=== PATIENT | male | born 1960 ===

== ENCOUNTER 2017-10-31 03:48 | Inpatient (IN) ==
[2017-10-31] MEDS ORDERED: Naloxone 0.4 MG/ML INJ IVP PRN (06:03)
[2017-10-31] MEDS ORDERED: Acetaminophen 325 MG TABLET PO PRN (06:03)
[2017-10-31] MEDS ORDERED: Lacri-Lube 3.5 GM TUBE BOTH EYES PRN (06:08)
[2017-10-31] MEDS ORDERED: *HR* FentaNYL (PF) 100 MCG/2 ML VIAL IVP PRN (06:10)
[2017-10-31] MEDS ORDERED: *HR* LORazepam 2 MG/ML VIAL IVP PRN (06:10)
[2017-10-31] MEDS ORDERED: 0.9 % Sodium Chloride 1,000 ML IVC SCH (06:15)
--- NOTE | 2017-10-31 06:36 | Internal Med History&Physical ---
Date of Encounter: 10/31/17 Time of Encounter: 05:30 Internal Medicine - H&P: HPI Chief complaint: respiratory failure Admitted From: Hospital to Hospital Transfer ([facility]) History of present illness: Mr. Mayberry is a 57 year old male who was transferred from the [facility] for concerns of respiratory failure, aspiration pneumonia, and likely drug withdrawal or overdose. Dr. English received a phone call from the [facility] requesting transfer a few hours ago. Dr. English requested patient be intubated for airway protection en route and for medical stabilization. Unfortunately, the [facility] informed Dr. English that they do not feel comfortable intubating because of lack of radiology support to confirm ET tube placement. He had been on BiPAP for several hours prior to transfer request and, despite BiPAP, he had a sustained respiratory acidosis and had oxygen desaturation. He was transferred on BiPAP and an unprotected airway. Upon arrival to the ICU, I was at the bedside once he arrived by squad. He was unresponsive but was twitching and agitated. His oxygen levels were dropping and he was unable to protect his airway. I perform a jaw thrust and tried to help clear his airway. Nonetheless, he continued to have persistent respiratory distress and had oxygen desaturation. We therefore proceeded with immediate intubation at bedside. He was premedicated with Versed and etomidate. Airway was successfully established on the first attempt by respiratory therapy under my direct supervision. An OG tube was placed. Chest x-ray and KUB were then ordered to confirm placement. We confirmed placement by auscultation and CO2 detector as well. No history could be obtained from patient whatsoever. I then reviewed the very limited transfer records from [facility] available to me. Of note, patient's last blood gas at 3:30 this morning revealed a pH of 7.18, PCO2 82, PO2 84, bicarbonate 30.9 O2 sats 92% on BiPAP at 100% FiO2. There was also a telemedicine ICU consult at 3:12 in the morning recommending intubation and securing an airway at that point. However, that was not performed. Patient was apparently in a drug rehabilitation facility at the [facility] and he was allowed to leave the facility on day-time passes. It was reported to me that patient likely overdosed on some medication, presumably methamphetamine, but that is not yet confirmed. There were also thoughts that the patient had an aspiration pneumonia. However, I cannot find any documentation of that at this time. Past Med Surg Social Fam HX - Past Medical History Source: unable to obtain - Past Surgical History Surgical History: other (unknown) - Social History Drug use: methamphetamine Current living situation: Other (drug rehab at [facility]) - Family History Mother History Unknown: Yes Father History Unknown: Yes Internal Medicine - H&P: Meds 3 Allergy/AdvReac Type Severity Reaction Status Date / Time No Known Drug Allergies Allergy None Unverified 10/31/17 05:58 ROS unobtainable: due to endotracheal tube, due to mental status - Constitutional Vitals: Temp Pulse Resp BP Pulse Ox 100.9 F H 102 22 156/122 95 10/31/17 05:35 10/31/17 05:35 10/31/17 06:00 10/31/17 06:00 10/31/17 06:00 General appearance: Present: disheveled. Absent: A&O X 0, severe distress, answers questions appropriately Exam: patient unresponsive; pupils dilated; actively twitching; occluding airway with tongue base -- unresponsive to jaw thrust - Head Head exam: Present: atraumatic - Eye Eye exam: Absent: scleral icterus Additional comments: pupils dilated -- 6-7 mm; scleral injection bilaterally - ENT ENT exam: Present: mucous membranes dry, normal exam, normal external ear exam - Neck Neck exam general surgery: Present: full ROM, supple, trachea midline. Absent: lymphadenopathy, nuchal rigidity, thyromegaly - Respiratory Respiratory exam: Present: accessory muscle use, decreased breath sounds, prolonged expiratory phase, respiratory distress (severe), rhonchi, stridor, wheezes, tachypnea. Absent: rales - Cardiovascular Cardiovascular exam: Present: distant heart sounds, RRR, +S1, +S2, tachycardia. Absent: diastolic murmur, JVD, systolic murmur - GI/Abdominal GI/Abdominal exam: Present: distended, hypoactive bowel sounds, no peritoneal signs. Absent: hepatomegaly, splenomegaly - Extremities Exam Extremities exam: Present: warm, radial pulses palpable and symmetrical. Absent : joint swelling, pedal edema - Back Exam Back exam: Absent: CVA tenderness (L), CVA tenderness (R) - Neurological Exam Neurological exam: Absent: alert, oriented X3 Additional comments: twitching as above; unresponsive - Psychiatric Psychiatric exam: Present: agitated Additional comments: unresponsive to stimuli; agitated and twitching - Skin Skin exam: Present: dry, erythema (cellulitis type rash on LLE), warm Internal Med - H&P Results - EKG Data -: EKG Interpreted by Myself - EKG Data Prior EKG available for review: no EKG comments: 10/31/17 06:42 NSR; IVCD - Diagnostic Studies Chest x-ray Status: image reviewed by me (ETT in place; 5 lobe infiltrates (edema vs pneumonia)) - Assessment and plan (1) Acute respiratory failure with hypoxia and hypercapnia Current Visit: Yes Status: Acute Assessment and plan: 1. Patient successfully intubate upon arrival; unfortunately and airway was not secured prior to trasnfer. 2. Mechanical ventilation and support. 3. Consult Pulmonology for ICU management. 4. ECHO ordered to evaluate LV function. 5. Cycle troponins and EKG's. 60 minutes critical care time spent with patient thus far. (2) Pneumonia Current Visit: Yes Status: Acute Assessment and plan: 1. I suspect aspiration pneumonia with possible early ARDS development given 5 lobe disease. 2. Possible etiology could be cardiogenic. 3. ECHO as above. 4. Blood and sputum cultures ordered. 5. IV Vancomycin, Zosyn, and Levaquin. 6. Pulmonology consulted for ICU management. Qualifiers: Pneumonia type: due to unspecified organism Laterality: bilateral Lung location: unspecified part of lung Qualified Code(s): J18.9 - Pneumonia, unspecified organism (3) Drug abuse Current Visit: Yes Status: Acute Assessment and plan: 1. Urine drug screen ordered. 2. Patient now sedated on Propofol. 3. I will ask dayteam to contact [facility] to confirm drugs of abuse and use history. (4) DVT prophylaxis Current Visit: Yes Status: Acute Assessment and plan: 1. Heparin SQ.
[2017-10-31 07:05] LABS: Basophils % 0.2 %; Eosinophils % 0.2 %; Immature Granulocytes % 0.8 % (0-4); Lymphocytes # 0.8 K/mcL (0.6-4.6); Lymphocytes % 5.7 %; Mean Corpuscular HGB Conc 30.3 g/dL (31.6-35.5); Mean Corpuscular Hemoglobin 25.1 pg (28.0-33.3); Mean Corpuscular Volume 82.7 fL (83.0-100.0); Mean Platelet Volume 8.1 fL (9.4-12.4); Monocytes % 7.6 %; Neutrophils # 11.3 K/mcL (1.6-8.9); Nucleated Red Blood Cells 0.2 /100 WBC (0); Platelet Count 516 K/mcL (140-400); Red Blood Count 3.99 M/mcL (4.19-5.50); Red Cell Distribution Width 16.6 % (11.5-14.5); Segmented Neutrophils % 85.5 %
--- NOTE | 2017-10-31 07:17 | Pulmonology Consult Note ---
<ArmandoneEstermarian M - Last Filed: 10/31/17 09:55> Date of Encounter: 10/31/17 Medications and Allergies 3 Allergy/AdvReac Type Severity Reaction Status Date / Time No Known Drug Allergies Allergy None Unverified 10/31/17 05:58 All Systems: The remainder of the systems were reviewed and are negative Physical Examination Vital Signs: Vital Signs, Last 4 Hours Temp Pulse Resp BP Pulse Ox 10/31/17 09:07 13 100/67 97 10/31/17 09:00 79 13 101/73 98 10/31/17 08:30 99.1 F 82 13 105/70 96 10/31/17 08:00 84 10/31/17 07:30 84 18 96/73 96 10/31/17 07:12 15 101/75 98 10/31/17 07:00 87 18 101/75 98 10/31/17 06:42 90 10/31/17 06:00 96 18 103/69 98 Ventilator Settings Ventilator Settings: Ventilator Settings, Last 8 Hours Ventilator Mode VC+ Ventilator Mode VC+ Ventilator Mode VC+ Ventilator Mode VC+ Ventilator Mode VC+ Ventilator Mode VC+ Ventilator Mode VC+ Ventilator Mode VC+ Ventilator Tidal Volume 550 Setting Ventilator Tidal Volume 550 Setting Ventilator Tidal Volume 550 Setting Ventilator Tidal Volume 550 Setting Ventilator Tidal Volume 550 Setting Ventilator Tidal Volume 550 Setting Ventilator Tidal Volume 550 Setting Ventilator Tidal Volume 550 Setting Ventilator Respiratory Rate 12 Setting Ventilator Respiratory Rate 12 Setting Ventilator Respiratory Rate 12 Setting Ventilator Respiratory Rate 12 Setting Ventilator Respiratory Rate 12 Setting Ventilator Respiratory Rate 12 Setting Ventilator Respiratory Rate 12 Setting Ventilator Respiratory Rate 12 Setting Actual Respiratory Rate 15 Actual Respiratory Rate 13 Actual Respiratory Rate 13 Actual Respiratory Rate 18 Actual Respiratory Rate 16 Actual Respiratory Rate 18 Actual Respiratory Rate 18 Actual Respiratory Rate 22 Positive End Expiratory 5 Pressure Positive End Expiratory 5 Pressure Positive End Expiratory 5 Pressure Positive End Expiratory 5 Pressure Positive End Expiratory 5 Pressure Positive End Expiratory 5 Pressure Positive End Expiratory 5 Pressure Positive End Expiratory 5 Pressure Peak Inspiratory Airway 21 Pressure Peak Inspiratory Airway 25 Pressure Peak Inspiratory Airway 26 Pressure Peak Inspiratory Airway 24 Pressure Peak Inspiratory Airway 24 Pressure Peak Inspiratory Airway 25 Pressure Peak Inspiratory Airway 25 Pressure Peak Inspiratory Airway 24 Pressure Results - Laboratory Findings CBC and BMP: 10/31/17 06:36 10/31/17 06:36 ABG ABG pH 7.35 pH Units (7.32-7.45) 10/31/17 07:39 ABG pCO2 56 mmHg (35-45) H 10/31/17 07:39 ABG pO2 131 mmHg (85-104) H 10/31/17 07:39 ABG O2 Saturation 99 % (95-98) H 10/31/17 07:39 PT/INR, D-dimer PT 13.7 Seconds (9.4-12.1) H 10/31/17 06:36 Abnormal lab findings: Abnormal lab results WBC 13.3 K/mcL (4.3-11.1) H 10/31/17 06:36 RBC 3.99 M/mcL (4.19-5.50) L 10/31/17 06:36 Hgb 10.0 g/dL (12.9-16.9) L 10/31/17 06:36 Hct 33.0 % (37.5-50.1) L 10/31/17 06:36 MCV 82.7 fL (83.0-100.0) L 10/31/17 06:36 MCH 25.1 pg (28.0-33.3) L 10/31/17 06:36 MCHC 30.3 g/dL (31.6-35.5) L 10/31/17 06:36 RDW 16.6 % (11.5-14.5) H 10/31/17 06:36 Plt Count 516 K/mcL (140-400) H 10/31/17 06:36 MPV 8.1 fL (9.4-12.4) L 10/31/17 06:36 Neutrophils # 11.3 K/mcL (1.6-8.9) H 10/31/17 06:36 Nucleated RBCs/100 WBC 0.2 /100 WBC (0) H 10/31/17 06:36 PT 13.7 Seconds (9.4-12.1) H 10/31/17 06:36 ABG pCO2 56 mmHg (35-45) H 10/31/17 07:39 ABG pO2 131 mmHg (85-104) H 10/31/17 07:39 ABG HCO3 31 mEq/L (21-27) H 10/31/17 07:39 ABG Total CO2 33 mEq/L (20-26) H 10/31/17 07:39 ABG O2 Saturation 99 % (95-98) H 10/31/17 07:39 ABG Base Excess 4 mEq/L (-2 to 3) H 10/31/17 07:39 BUN 24 mg/dL (6-20) H 10/31/17 06:36 Glucose 154 mg/dL (70-105) H 10/31/17 06:36 POC Glucose 152 mg/dL (70-99) H 10/31/17 06:24 Troponin I 0.06 ng/mL (< 0.04) H* 10/31/17 06:36 Albumin 3.3 g/dL (3.5-5.7) L 10/31/17 06:36 Globulin 4.5 g/dL (2.4-3.5) H 10/31/17 06:36 Albumin/Globulin Ratio 0.7 (1.1-2.2) L 10/31/17 06:36 U Benzodiazepines Scrn Positive ng/mL (Dnangq=051) H 10/31/17 06:08 - Clinical Findings Intake & Output: Intake & Output 10/30/17 10/31/17 10/31/17 23:59 07:59 15:59 Intake Total 0 / 0 250 / 250 Output Total 250 / 250 Balance 0 / 0 0 / 0 Weight 104 kg Consult Discharge Plan - Plan [facility]: [facility]Primary Care Provider[facility] - - Attending Attestation I examined this patient and my medical decision-making was reviewed with the Resident Physician. I agree with the documented findings, disposition and treatment plan as described except to the extent set forth below. Patient seen and examined. Labs, radiology, chart personally reviewed. 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 There is only minimal intrinsic PEEP and lowered changed vent setting if he is not able to do SBT. There is a possibility of aspiration pneumonia and empiric antibiotics is reasonable. We will change vent setting based on his clinical response and he does not meet ARDS criteria. I suspect patient has underlying lung disease. Cardiovascular: stable GI: Nutrition per dietary and GI prophylaxis per routine Heme: DVT prophylaxis per routine ID: Continue antibiotics and plan to de-escalation Renal; urine out put and renal funtion reviewed Endorcine: blood glucose is monitored Lines: all lines checked and no evidence of infections Skin: skin care to prevent pressure ulcers per nursing routine care I spent 35 min of Critical Care time with this patient. It involved decision making of high complexity to assess, manipulate, and support vital organ system failure and/or to prevent further life threatening deterioration of the patient' s condition. The time involved in the performance of separately reportable procedures was not counted toward critical care time. <Devante Guzman - Last Filed: 10/31/17 10:13> Date of Encounter: 10/31/17 Time of Encounter: 09:31 Assessment and Plan (1) Acute respiratory failure with hypoxia and hypercapnia Current Visit: Yes Status: Acute Patient presented with acute respiratory failure necessitating emergent intubation on 10/31/17. Likely multifactorial with concern for drug ingestion or withdrawal as well as underlying COPD with hypercapnic respiratory acidosis and pneumonia. Continue mechanical ventilation. Albuterol and Symbicort as ordered. Continue broad-spectrum antibiotic coverage for pneumonia. Consider CPAP trial in afternoon. (2) Pneumonia Current Visit: Yes Status: Acute Chest x-ray with [place] edema versus pneumonia. Leukocytosis of 13. Afebrile. There was concern for aspiration as per documentation. Blood cultures and sputum cultures pending. Continue broad-spectrum antibiotics. Qualifiers: Pneumonia type: due to unspecified organism Laterality: bilateral Lung location: unspecified part of lung Qualified Code(s): J18.9 - Pneumonia, unspecified organism (3) Drug abuse Current Visit: Yes Status: Acute As per records history of methamphetamine abuse. Was sent from the [facility] where he was admitted for drug rehabilitation. Unsure of evening circumstances with concern for potential overdose or withdrawal. Urine drug screen positive for benzos however he received sedatives prior to transfer. Continue to monitor for drug withdrawal. (4) COPD (chronic obstructive pulmonary disease) Current Visit: Yes Status: Chronic Continue albuterol and Symbicort Qualifiers: COPD type: unspecified COPD Qualified Code(s): J44.9 - Chronic obstructive pulmonary disease, unspecified (5) DVT prophylaxis Current Visit: Yes Status: Acute Heparin 5000 units every 12 hours History of Present Illness Consult date: 10/31/17 Requesting physician: Tavon Cooper Reason for consult: other (Respiratory failure) Chief complaint: Respiratory failure, possible drug withdrawal History of present illness: Jorge Alberto is a 57-year-old male who was transferred from the [facility] this morning due to concerns for possible drug withdrawal/overdose, respiratory failure. History is obtained screws away from prior documentation as the patient is intubated and sedated. The patient was noted to be at the [facility] for drug rehabilitation for a prior history of amphetamine abuse. It appears that he was able to leave during the day for day passes and came back this evening. This morning our hospitalist spoke with the [facility] when they requested to transfer the patient. He was advised and requested that the patient be intubated prior to transfer. It appears the OR felt uncomfortable intubating the patient as they had no radiologist in house to confirm ET tube placement so sent the patient on BiPAP. He was emergently intubated upon arrival to the intensive care unit here due to respiratory failure and altered mental status with inability to guard his airway. Imaging and labs were ordered and broad-spectrum antibiotics initiated. Past Med Surg Social Fam HX - Past Medical History Source: old records reviewed Medical history: COPD, other (Drug abuse) - Past Surgical History Surgical History: other (unknown) - Social History Drug use: methamphetamine - Family History Mother History Unknown: Yes Father History Unknown: Yes ROS unobtainable: due to endotracheal tube All Systems: The remainder of the systems were reviewed and are negative Physical Examination Vital Signs: Vital Signs, Last 4 Hours Temp Pulse Resp BP Pulse Ox 10/31/17 07:00 87 18 101/75 98 10/31/17 06:42 90 10/31/17 06:00 96 18 103/69 98 10/31/17 05:35 100.9 F H 102 22 156/122 91 General appearance: other (Intubated and sedated) Eyes: nonicteric Effort: other (Intubated and sedated) Auscultation: bilateral: rhonchi Cardiovascular: regular rate and rhythm Gastrointestinal: soft, non-distended Integumentary: normal Extremities: no cyanosis, no edema Musculoskeletal: no deformities other (Sedated) Ventilator Settings Ventilator Settings: Ventilator Settings, Last 8 Hours Ventilator Mode VC+ Ventilator Mode VC+ Ventilator Mode VC+ Ventilator Tidal Volume 550 Setting Ventilator Tidal Volume 550 Setting Ventilator Tidal Volume 550 Setting Ventilator Respiratory Rate 12 Setting Ventilator Respiratory Rate 12 Setting Ventilator Respiratory Rate 12 Setting Actual Respiratory Rate 18 Actual Respiratory Rate 18 Actual Respiratory Rate 22 Positive End Expiratory 5 Pressure Positive End Expiratory 5 Pressure Positive End Expiratory 5 Pressure Peak Inspiratory Airway 25 Pressure Peak Inspiratory Airway 25 Pressure Peak Inspiratory Airway 24 Pressure Results - Laboratory Findings CBC and BMP: 10/31/17 06:36 10/31/17 06:36 Abnormal lab findings: Abnormal lab results WBC 13.3 K/mcL (4.3-11.1) H 10/31/17 06:36 RBC 3.99 M/mcL (4.19-5.50) L 10/31/17 06:36 Hgb 10.0 g/dL (12.9-16.9) L 10/31/17 06:36 Hct 33.0 % (37.5-50.1) L 10/31/17 06:36 MCV 82.7 fL (83.0-100.0) L 10/31/17 06:36 MCH 25.1 pg (28.0-33.3) L 10/31/17 06:36 MCHC 30.3 g/dL (31.6-35.5) L 10/31/17 06:36 RDW 16.6 % (11.5-14.5) H 10/31/17 06:36 Plt Count 516 K/mcL (140-400) H 10/31/17 06:36 MPV 8.1 fL (9.4-12.4) L 10/31/17 06:36 Neutrophils # 11.3 K/mcL (1.6-8.9) H 10/31/17 06:36 Nucleated RBCs/100 WBC 0.2 /100 WBC (0) H 10/31/17 06:36 POC Glucose 152 mg/dL (70-99) H 10/31/17 06:24 - Clinical Findings Intake & Output: Intake & Output 10/30/17 10/30/17 10/31/17 15:59 23:59 07:59 Intake Total 0 / 0 Balance 0 / 0 Weight 104 kg
[2017-10-31 07:20] LABS: Amphetamine Screen,Urine Negative ng/mL (Cutoff=1000); Barbiturate Screen,Urine Negative ng/mL (Cutoff=200); Benzodiazepines Screen,Urine Positive ng/mL (Cutoff=200); Cannabinoid Screen,Urine Negative ng/mL (Cutoff = 50); Cocaine Screen,Urine Negative ng/mL (Cutoff= 300); Opiate Screen,Urine Negative ng/mL (Cutoff=300); Phencyclidine Screen,Urine Negative ng/mL (Cutoff=25)
[2017-10-31 07:21] LABS: Alanine Aminotransferase 18 Units/L (7-52); Albumin 3.3 g/dL (3.5-5.7); Albumin/Globulin Ratio 0.7 (1.1-2.2); Alkaline Phosphatase 48 Units/L (34-104); Aspartate Amino Transferase 24 Units/L (13-39); BUN/Creatinine Ratio 26 (6-26); Bilirubin,Direct 0.1 mg/dL (0.0-0.2); Bilirubin,Indirect 0.3 mg/dL (0.0-1.2); Bilirubin,Total 0.4 mg/dL (0.3-1.0); Blood Urea Nitrogen 24 mg/dL (6-20); Calcium 8.7 mg/dL (8.6-10.3); Carbon Dioxide 28 mEq/L (23-29); Chloride 102 mEq/L (98-107); Globulin 4.5 g/dL (2.4-3.5); Glucose 154 mg/dL (70-105); Magnesium 2.4 mg/dL (1.6-2.6); Osmolality,Calculated 291 (280-300); Potassium 4.6 mEq/L (3.5-5.1); Sodium 137 mEq/L (136-145); Total Protein 7.8 g/dL (6.4-8.9); eGFR For African Americans > 60 (> 60); eGFR For Non-African Americans > 60 (> 60)
[2017-10-31 07:56] LABS: INR 1.3; Prothrombin Time 13.7 Seconds (9.4-12.1)
[2017-10-31 08:03] LABS: ABG Base Excess 4 mEq/L (-2 to 3); ABG HCO3 31 mEq/L (21-27); ABG Oxygen Saturation 99 % (95-98); ABG PCO2 56 mmHg (35-45); ABG PH 7.35 pH Units (7.32-7.45); ABG PO2 131 mmHg (85-104); ABG TCO2 33 mEq/L (20-26); Blood Gas Modality PRVC; Blood Gas PEEP 5 cm H2O; Blood Gas Respiration Rate 12; Blood Gas VT 550 cc
[2017-10-31] MEDS: Pantoprazole 40 MG VIAL IVP SCH (08:31)
[2017-10-31] MEDS: *HR* Heparin 5,000 UNIT/ML VIAL SQ SCH ×3 (08:31→23:43)
[2017-10-31] MEDS: Chlorhexidine Rinse 15 ML MOUTHWASH MM SCH ×2 (08:32→19:51)
[2017-10-31] MEDS: Levofloxacin 750 MG/150 ML 750 MG/150 ML BAG IVPB SCH (08:40)
[2017-10-31] MEDS: Lacri-Lube 3.5 GM TUBE BOTH EYES SCH ×5 (08:50→23:43)
[2017-10-31] MEDS ORDERED: MVI, adult with vitamin K 10 ML in 0.9 % Sodium Chloride 1,000 ML IVC ONE (09:02)
[2017-10-31] MEDS: Budesonide/Formoterol 160/4.5 MDI IH SCH ×2 (09:07→19:50)
[2017-10-31] MEDS ORDERED: *HR* Midazolam HCl 5 MG/5 ML VIAL IVP ONE (09:42)
[2017-10-31] MEDS ORDERED: *HR* LORazepam 2 MG/ML VIAL IVP ONE (09:42)
[2017-10-31] MEDS ORDERED: *HR* Etomidate 20 MG/10 ML AMPUL IVP ONE (09:42)
[2017-10-31] MEDS ORDERED: *HR* Midazolam HCl 2 MG/2 ML VIAL IV ONE (09:42)
[2017-10-31] MEDS: Piperacillin/Tazobactam 3.375 GM in 0.9 % Sodium Chloride Mini Bag 100 ML IVPB SCH ×3 (09:57→23:43)
[2017-10-31] MEDS: Dexmedetomidine HCl 400 MCG/100 ML MLS IVC SCH ×2 (10:37→17:59)
[2017-11-01] MEDS: Dexmedetomidine HCl 400 MCG/100 ML MLS IVC SCH ×2 (00:25→07:09)
[2017-11-01] MEDS: Lacri-Lube 3.5 GM TUBE BOTH EYES SCH ×5 (03:11→19:55)
[2017-11-01 03:52] LABS: Basophils # 0.1 K/mcL (0.0-0.2); Basophils % 0.4 %; Eosinophils # 0.1 K/mcL (0.0-0.6); Eosinophils % 0.9 %; Hemoglobin 9.9 g/dL (12.9-16.9); Immature Granulocytes % 0.3 % (0-4); Lymphocytes # 0.8 K/mcL (0.6-4.6); Lymphocytes % 6.8 %; Mean Corpuscular Hemoglobin 24.6 pg (28.0-33.3); Mean Corpuscular Volume 81.9 fL (83.0-100.0); Mean Platelet Volume 8.5 fL (9.4-12.4); Monocytes # 1.1 K/mcL (0.0-1.3); Monocytes % 9.8 %; Neutrophils # 9.5 K/mcL (1.6-8.9); Platelet Count 446 K/mcL (140-400); Red Blood Count 4.03 M/mcL (4.19-5.50); Red Cell Distribution Width 16.9 % (11.5-14.5); Segmented Neutrophils % 81.8 %
[2017-11-01 04:11] LABS: BUN/Creatinine Ratio 28 (6-26); Blood Urea Nitrogen 32 mg/dL (6-20); Calcium 8.7 mg/dL (8.6-10.3); Carbon Dioxide 27 mEq/L (23-29); Chloride 102 mEq/L (98-107); Glucose 138 mg/dL (70-105); Osmolality,Calculated 297 (280-300); Potassium 4.4 mEq/L (3.5-5.1); Sodium 139 mEq/L (136-145); eGFR For African Americans > 60 (> 60); eGFR For Non-African Americans > 60 (> 60)
[2017-11-01 05:06] LABS: ABG Base Excess 4 mEq/L (-2 to 3); ABG HCO3 29 mEq/L (21-27); ABG Oxygen Saturation 96 % (95-98); ABG PCO2 47 mmHg (35-45); ABG PO2 83 mmHg (85-104); ABG TCO2 31 mEq/L (20-26); Blood Gas Modality VC; Blood Gas PEEP 5 cm H2O; Blood Gas Respiration Rate 12; Blood Gas VT 550 cc
--- NOTE | 2017-11-01 07:07 | Psychiatry Progress Note ---
Date of Encounter: 11/01/17 Results - Vital Signs Vital Signs: Temp Pulse Resp BP Pulse Ox 99.6 F 58 15 99/71 97 11/01/17 03:00 11/01/17 06:00 11/01/17 06:03 11/01/17 06:03 11/01/17 06:03 - Drug Levels and Toxicology Drug Levels and Toxicology: Drug Levels and Toxicity 10/31/17 06:08 Urine Opiates Screen Negative Ur Barbiturates Screen Negative Ur Phencyclidine Scrn Negative Ur Amphetamines Screen Negative U Benzodiazepines Scrn Positive H Urine Cocaine Screen Negative U Marijuana (THC) Screen Negative - Labs Labs: Laboratory Results - last 24 hr 10/31/17 10/31/17 10/31/17 06:08 06:36 06:36 WBC RBC Hgb Hct MCV MCH MCHC RDW Plt Count MPV Immature Gran % Seg Neutrophils % Lymphocytes % Monocytes % Eosinophils % Basophils % Neutrophils # Lymphocytes # Monocytes # Eosinophils # Basophils # PT 13.7 H INR 1.3 Sample Site ABG pH ABG pCO2 ABG pO2 ABG HCO3 ABG Total CO2 ABG O2 Saturation ABG Base Excess Eze Test Respiration Rate O2 Delivery Device Blood Gas Modality Inspired O2 Tidal Volume PEEP Sodium 137 Potassium 4.6 Chloride 102 Carbon Dioxide 28 BUN 24 H Creatinine 0.93 Est GFR ( Amer) > 60 Est GFR (Non-Af Amer) > 60 BUN/Creatinine Ratio 26 Glucose 154 H Calculated Osmolality 291 Lactic Acid Calcium 8.7 Magnesium 2.4 Total Bilirubin 0.4 Direct Bilirubin 0.1 Indirect Bilirubin 0.3 AST 24 ALT 18 Alkaline Phosphatase 48 Troponin I Serum Total Protein 7.8 Albumin 3.3 L Globulin 4.5 H Albumin/Globulin Ratio 0.7 L Urine Opiates Screen Negative Ur Barbiturates Screen Negative Ur Phencyclidine Scrn Negative Ur Amphetamines Screen Negative U Benzodiazepines Scrn Positive H Urine Cocaine Screen Negative U Marijuana (THC) Screen Negative 10/31/17 10/31/17 10/31/17 06:36 06:36 07:39 WBC RBC Hgb Hct MCV MCH MCHC RDW Plt Count MPV Immature Gran % Seg Neutrophils % Lymphocytes % Monocytes % Eosinophils % Basophils % Neutrophils # Lymphocytes # Monocytes # Eosinophils # Basophils # PT INR Sample Site L Radial ABG pH 7.35 ABG pCO2 56 H ABG pO2 131 H ABG HCO3 31 H ABG Total CO2 33 H ABG O2 Saturation 99 H ABG Base Excess 4 H Eze Test N/A Respiration Rate 12 O2 Delivery Device Adult Vent Blood Gas Modality PRVC Inspired O2 80.0 Tidal Volume 550 PEEP 5 Sodium Potassium Chloride Carbon Dioxide BUN Creatinine Est GFR ( Amer) Est GFR (Non-Af Amer) BUN/Creatinine Ratio Glucose Calculated Osmolality Lactic Acid 1.1 Calcium Magnesium Total Bilirubin Direct Bilirubin Indirect Bilirubin AST ALT Alkaline Phosphatase Troponin I 0.06 H* Serum Total Protein Albumin Globulin Albumin/Globulin Ratio Urine Opiates Screen Ur Barbiturates Screen Ur Phencyclidine Scrn Ur Amphetamines Screen U Benzodiazepines Scrn Urine Cocaine Screen U Marijuana (THC) Screen 10/31/17 10/31/17 11/01/17 10:05 14:11 03:14 WBC 11.7 H RBC 4.03 L Hgb 9.9 L Hct 33.0 L MCV 81.9 L MCH 24.6 L MCHC 30.0 L RDW 16.9 H Plt Count 446 H MPV 8.5 L Immature Gran % 0.3 Seg Neutrophils % 81.8 Lymphocytes % 6.8 Monocytes % 9.8 Eosinophils % 0.9 Basophils % 0.4 Neutrophils # 9.5 H Lymphocytes # 0.8 Monocytes # 1.1 Eosinophils # 0.1 Basophils # 0.1 PT INR Sample Site ABG pH ABG pCO2 ABG pO2 ABG HCO3 ABG Total CO2 ABG O2 Saturation ABG Base Excess Eze Test Respiration Rate O2 Delivery Device Blood Gas Modality Inspired O2 Tidal Volume PEEP Sodium Potassium Chloride Carbon Dioxide BUN Creatinine Est GFR ( Amer) Est GFR (Non-Af Amer) BUN/Creatinine Ratio Glucose Calculated Osmolality Lactic Acid Calcium Magnesium Total Bilirubin Direct Bilirubin Indirect Bilirubin AST ALT Alkaline Phosphatase Troponin I 0.05 H* 0.04 H* Serum Total Protein Albumin Globulin Albumin/Globulin Ratio Urine Opiates Screen Ur Barbiturates Screen Ur Phencyclidine Scrn Ur Amphetamines Screen U Benzodiazepines Scrn Urine Cocaine Screen U Marijuana (THC) Screen 11/01/17 11/01/17 03:14 05:03 WBC RBC Hgb Hct MCV MCH MCHC RDW Plt Count MPV Immature Gran % Seg Neutrophils % Lymphocytes % Monocytes % Eosinophils % Basophils % Neutrophils # Lymphocytes # Monocytes # Eosinophils # Basophils # PT INR Sample Site R Radial ABG pH 7.40 ABG pCO2 47 H ABG pO2 83 L ABG HCO3 29 H ABG Total CO2 31 H ABG O2 Saturation 96 ABG Base Excess 4 H Eze Test Respiration Rate 12 O2 Delivery Device Adult Vent Blood Gas Modality VC Inspired O2 35.0 Tidal Volume 550 PEEP 5 Sodium 139 Potassium 4.4 Chloride 102 Carbon Dioxide 27 BUN 32 H Creatinine 1.14 Est GFR ( Amer) > 60 Est GFR (Non-Af Amer) > 60 BUN/Creatinine Ratio 28 H Glucose 138 H Calculated Osmolality 297 Lactic Acid Calcium 8.7 Magnesium Total Bilirubin Direct Bilirubin Indirect Bilirubin AST ALT Alkaline Phosphatase Troponin I Serum Total Protein Albumin Globulin Albumin/Globulin Ratio Urine Opiates Screen Ur Barbiturates Screen Ur Phencyclidine Scrn Ur Amphetamines Screen U Benzodiazepines Scrn Urine Cocaine Screen U Marijuana (THC) Screen - Impressions ITS Impressions Chest X-Ray 10/31/17 06:00 IMPRESSION: 1. The endotracheal tube tip is 4-5 cm above the jose miguel. 2. The enteric tube is in good position in the stomach. 3. Pulmonary edema versus pneumonia. 4. Indeterminate bowel-gas pattern. D/ / Mart Galarza MD / Mart Galarza MD Interpreting Provider: Mart Galarza MD X-Ray 10/31/17 06:00 IMPRESSION: 1. The endotracheal tube tip is 4-5 cm above the jose miguel. 2. The enteric tube is in good position in the stomach. 3. Pulmonary edema versus pneumonia. 4. Indeterminate bowel-gas pattern. D/ / Mart Galarza MD / Mart Galarza MD Interpreting Provider: Mart Galarza MD Assessment and Plan (1) Acute respiratory failure with hypoxia and hypercapnia Current visit: Yes Status: Acute (2) Pneumonia Current visit: Yes Status: Acute Qualifiers: Pneumonia type: due to unspecified organism Laterality: bilateral Lung location: unspecified part of lung Qualified Code(s): J18.9 - Pneumonia, unspecified organism (3) Drug abuse Current visit: Yes Status: Acute (4) COPD (chronic obstructive pulmonary disease) Current visit: Yes Status: Chronic Qualifiers: COPD type: unspecified COPD Qualified Code(s): J44.9 - Chronic obstructive pulmonary disease, unspecified (5) DVT prophylaxis Current visit: Yes Status: Acute Consult Discharge Plan - Plan [facility]errals: [facility] [Primary Care Provider[facility] - Psychiatry Exam - Constitutional Vitals: Temp Pulse Resp BP Pulse Ox 99.6 F 58 15 99/71 97 11/01/17 03:00 11/01/17 06:00 11/01/17 06:03 11/01/17 06:03 11/01/17 06:03
[2017-11-01] MEDS: Budesonide/Formoterol 160/4.5 MDI IH SCH ×2 (07:23→19:49)
[2017-11-01] MEDS: Piperacillin/Tazobactam 3.375 GM in 0.9 % Sodium Chloride Mini Bag 100 ML IVPB SCH ×3 (08:17→23:47)
[2017-11-01] MEDS: *HR* Heparin 5,000 UNIT/ML VIAL SQ SCH ×3 (08:18→23:47)
[2017-11-01] MEDS: Pantoprazole 40 MG VIAL IVP SCH (08:18)
[2017-11-01] MEDS: Chlorhexidine Rinse 15 ML MOUTHWASH MM SCH ×2 (08:18→20:27)
[2017-11-01] MEDS: Levofloxacin 750 MG/150 ML 750 MG/150 ML BAG IVPB SCH (08:19)
[2017-11-01] MEDS: FentaNYL (PF) 1,000 MCG in 0.9 % Sodium Chloride 80 ML IVC SCH ×2 (08:31→19:55)
--- NOTE | 2017-11-01 09:41 | Pulmonology Progress Note ---
<Devante Guzman - Last Filed: 11/01/17 09:42> Date of Encounter: 11/01/17 Time of Encounter: 09:39 Assessment and Plan (1) Acute respiratory failure with hypoxia and hypercapnia Current Visit: Yes Status: Acute Patient presented with acute respiratory failure necessitating emergent intubation on 10/31/17. Likely multifactorial with concern for drug ingestion or withdrawal as well as underlying COPD with hypercapnic respiratory acidosis and pneumonia. Continue mechanical ventilation. Albuterol and Symbicort as ordered. Continue broad-spectrum antibiotic coverage for pneumonia. Wean Precedex and institute fentanyl infusion. Currently mental status precludes extubation. (2) Pneumonia Current Visit: Yes Status: Acute Chest x-ray with pulmonary edema versus pneumonia. Leukocytosis improving There was concern for aspiration as per documentation. Blood cultures pending. Sputum culture with moderate WBC, few gram-positive cocci, a few gram-negative rods, few gram-negative diplococci Continue broad-spectrum antibiotics. Qualifiers: Pneumonia type: due to unspecified organism Laterality: bilateral Lung location: unspecified part of lung Qualified Code(s): J18.9 - Pneumonia, unspecified organism (3) Drug abuse Current Visit: Yes Status: Acute As per records history of methamphetamine abuse. Was sent from the [facility] where he was admitted for drug rehabilitation. Unsure of evening circumstances with concern for potential overdose or withdrawal. Urine drug screen positive for benzos however he received sedatives prior to transfer. Continue to monitor for drug withdrawal. (4) COPD (chronic obstructive pulmonary disease) Current Visit: Yes Status: Chronic Continue albuterol and Symbicort Qualifiers: COPD type: unspecified COPD Qualified Code(s): J44.9 - Chronic obstructive pulmonary disease, unspecified (5) DVT prophylaxis Current Visit: Yes Status: Acute Heparin 5000 units every 12 hours Subjective Principal diagnosis: Respiratory failure Interval history: No acute events overnight. He remained hemodynamically stable. When trialing CPAP he becomes combative and does not follow commands. Objective PUL Vital signs: Last Vital Signs Temp 99.5 F 11/01/17 07:28 Pulse 60 11/01/17 08:30 Resp 16 11/01/17 08:30 BP 102/72 11/01/17 08:30 Pulse Ox 94 11/01/17 08:30 General appearance: no acute distress, other (Intubated and sedated) ENT: other (ET tube in place) Effort: other (Mechanically ventilated) Auscultation: bilateral: diminished breath sounds Cardiovascular: regular rate and rhythm Gastrointestinal: soft, non-tender, non-distended Integumentary: normal Extremities: no cyanosis, no edema Musculoskeletal: no deformities other (Sedated) Ventilator Settings Ventilator Settings: Ventilator Settings, Last 8 Hours Ventilator Mode VC+ Ventilator Mode VC+ Ventilator Mode VC+ Ventilator Mode VC+ Ventilator Mode VC+ Ventilator Mode VC+ Ventilator Mode VC+ Ventilator Mode VC+ Ventilator Mode VC+ Ventilator Mode VC+ Ventilator Tidal Volume 550 Setting Ventilator Tidal Volume 550 Setting Ventilator Tidal Volume 550 Setting Ventilator Tidal Volume 550 Setting Ventilator Tidal Volume 550 Setting Ventilator Tidal Volume 550 Setting Ventilator Tidal Volume 550 Setting Ventilator Tidal Volume 550 Setting Ventilator Tidal Volume 550 Setting Ventilator Tidal Volume 550 Setting Ventilator Tidal Volume 550 Setting Ventilator Tidal Volume 550 Setting Ventilator Respiratory Rate 12 Setting Ventilator Respiratory Rate 12 Setting Ventilator Respiratory Rate 12 Setting Ventilator Respiratory Rate 12 Setting Ventilator Respiratory Rate 12 Setting Ventilator Respiratory Rate 12 Setting Ventilator Respiratory Rate 12 Setting Ventilator Respiratory Rate 12 Setting Ventilator Respiratory Rate 12 Setting Ventilator Respiratory Rate 12 Setting Ventilator Respiratory Rate 12 Setting Ventilator Respiratory Rate 12 Setting Actual Respiratory Rate 16 Actual Respiratory Rate 15 Actual Respiratory Rate 15 Actual Respiratory Rate 16 Actual Respiratory Rate 14 Actual Respiratory Rate 18 Actual Respiratory Rate 15 Actual Respiratory Rate 14 Actual Respiratory Rate 14 Actual Respiratory Rate 15 Actual Respiratory Rate 18 Positive End Expiratory 5 Pressure Positive End Expiratory 5 Pressure Positive End Expiratory 5 Pressure Positive End Expiratory 5 Pressure Positive End Expiratory 5 Pressure Positive End Expiratory 5 Pressure Positive End Expiratory 5 Pressure Positive End Expiratory 5 Pressure Positive End Expiratory 5 Pressure Positive End Expiratory 5 Pressure Positive End Expiratory 5 Pressure Positive End Expiratory 5 Pressure Peak Inspiratory Airway 29 Pressure Peak Inspiratory Airway 27 Pressure Peak Inspiratory Airway 27 Pressure Peak Inspiratory Airway 28 Pressure Peak Inspiratory Airway 28 Pressure Peak Inspiratory Airway 30 Pressure Peak Inspiratory Airway 27 Pressure Peak Inspiratory Airway 28 Pressure Peak Inspiratory Airway 27 Pressure Peak Inspiratory Airway 27 Pressure Peak Inspiratory Airway 40 Pressure Results - Laboratory Findings CBC and BMP: 11/01/17 03:14 11/01/17 03:14 ABG ABG pH 7.40 pH Units (7.32-7.45) 11/01/17 05:03 ABG pCO2 47 mmHg (35-45) H 11/01/17 05:03 ABG pO2 83 mmHg (85-104) L 11/01/17 05:03 ABG O2 Saturation 96 % (95-98) 11/01/17 05:03 PT/INR, D-dimer PT 13.7 Seconds (9.4-12.1) H 10/31/17 06:36 Abnormal lab findings: Abnormal lab results WBC 11.7 K/mcL (4.3-11.1) H 11/01/17 03:14 RBC 4.03 M/mcL (4.19-5.50) L 11/01/17 03:14 Hgb 9.9 g/dL (12.9-16.9) L 11/01/17 03:14 Hct 33.0 % (37.5-50.1) L 11/01/17 03:14 MCV 81.9 fL (83.0-100.0) L 11/01/17 03:14 MCH 24.6 pg (28.0-33.3) L 11/01/17 03:14 MCHC 30.0 g/dL (31.6-35.5) L 11/01/17 03:14 RDW 16.9 % (11.5-14.5) H 11/01/17 03:14 Plt Count 446 K/mcL (140-400) H 11/01/17 03:14 MPV 8.5 fL (9.4-12.4) L 11/01/17 03:14 Neutrophils # 9.5 K/mcL (1.6-8.9) H 11/01/17 03:14 Nucleated RBCs/100 WBC 0.2 /100 WBC (0) H 10/31/17 06:36 PT 13.7 Seconds (9.4-12.1) H 10/31/17 06:36 ABG pCO2 47 mmHg (35-45) H 11/01/17 05:03 ABG pO2 83 mmHg (85-104) L 11/01/17 05:03 ABG HCO3 29 mEq/L (21-27) H 11/01/17 05:03 ABG Total CO2 31 mEq/L (20-26) H 11/01/17 05:03 ABG Base Excess 4 mEq/L (-2 to 3) H 11/01/17 05:03 BUN 32 mg/dL (6-20) H 11/01/17 03:14 BUN/Creatinine Ratio 28 (6-26) H 11/01/17 03:14 Glucose 138 mg/dL (70-105) H 11/01/17 03:14 POC Glucose 152 mg/dL (70-99) H 10/31/17 06:24 Troponin I 0.04 ng/mL (< 0.04) H* 10/31/17 14:11 Albumin 3.3 g/dL (3.5-5.7) L 10/31/17 06:36 Globulin 4.5 g/dL (2.4-3.5) H 10/31/17 06:36 Albumin/Globulin Ratio 0.7 (1.1-2.2) L 10/31/17 06:36 U Benzodiazepines Scrn Positive ng/mL (Rpfmgm=370) H 10/31/17 06:08 - Microbiology Findings Microbiology Findings: Microbiology, Last 48 Hours 10/31/17 17:30 Sputum Culture - Preliminary Sputum - Clinical Findings Intake & Output: Intake & Output 10/31/17 11/01/17 11/01/17 23:59 07:59 15:59 Intake Total 470 / 470 400 / 400 123 / 123 Output Total 200 / 200 505 / 505 Balance 270 / 270 -105 / -105 123 / 123 Weight 110.1 kg Consult Discharge Plan - Plan [facility]errals[facility] [Primary Care Provider[facility] - <Keli López - Last Filed: 11/01/17 11:26> Date of Encounter: 11/01/17 Objective PUL Vital signs: Last Vital Signs Temp 99.5 F 11/01/17 07:28 Pulse 61 11/01/17 10:25 Resp 13 11/01/17 10:25 BP 95/64 11/01/17 10:25 Pulse Ox 97 11/01/17 10:25 Ventilator Settings Ventilator Settings: Ventilator Settings, Last 8 Hours Ventilator Mode VC+ Ventilator Mode VC+ Ventilator Mode VC+ Ventilator Mode VC+ Ventilator Mode VC+ Ventilator Mode VC+ Ventilator Mode VC+ Ventilator Mode VC+ Ventilator Tidal Volume 550 Setting Ventilator Tidal Volume 550 Setting Ventilator Tidal Volume 550 Setting Ventilator Tidal Volume 550 Setting Ventilator Tidal Volume 550 Setting Ventilator Tidal Volume 550 Setting Ventilator Tidal Volume 550 Setting Ventilator Tidal Volume 550 Setting Ventilator Tidal Volume 550 Setting Ventilator Tidal Volume 550 Setting Ventilator Tidal Volume 550 Setting Ventilator Tidal Volume 550 Setting Ventilator Respiratory Rate 12 Setting Ventilator Respiratory Rate 12 Setting Ventilator Respiratory Rate 12 Setting Ventilator Respiratory Rate 12 Setting Ventilator Respiratory Rate 12 Setting Ventilator Respiratory Rate 12 Setting Ventilator Respiratory Rate 12 Setting Ventilator Respiratory Rate 12 Setting Ventilator Respiratory Rate 12 Setting Ventilator Respiratory Rate 12 Setting Ventilator Respiratory Rate 12 Setting Ventilator Respiratory Rate 12 Setting Actual Respiratory Rate 14 Actual Respiratory Rate 14 Actual Respiratory Rate 13 Actual Respiratory Rate 16 Actual Respiratory Rate 15 Actual Respiratory Rate 15 Actual Respiratory Rate 16 Actual Respiratory Rate 14 Actual Respiratory Rate 18 Actual Respiratory Rate 15 Actual Respiratory Rate 14 Positive End Expiratory 5 Pressure Positive End Expiratory 5 Pressure Positive End Expiratory 5 Pressure Positive End Expiratory 5 Pressure Positive End Expiratory 5 Pressure Positive End Expiratory 5 Pressure Positive End Expiratory 5 Pressure Positive End Expiratory 5 Pressure Positive End Expiratory 5 Pressure Positive End Expiratory 5 Pressure Positive End Expiratory 5 Pressure Positive End Expiratory 5 Pressure Peak Inspiratory Airway 33 Pressure Peak Inspiratory Airway 30 Pressure Peak Inspiratory Airway 27 Pressure Peak Inspiratory Airway 29 Pressure Peak Inspiratory Airway 27 Pressure Peak Inspiratory Airway 27 Pressure Peak Inspiratory Airway 28 Pressure Peak Inspiratory Airway 28 Pressure Peak Inspiratory Airway 30 Pressure Peak Inspiratory Airway 27 Pressure Peak Inspiratory Airway 28 Pressure Results - Laboratory Findings CBC and BMP: 11/01/17 03:14 11/01/17 03:14 ABG ABG pH 7.40 pH Units (7.32-7.45) 11/01/17 05:03 ABG pCO2 47 mmHg (35-45) H 11/01/17 05:03 ABG pO2 83 mmHg (85-104) L 11/01/17 05:03 ABG O2 Saturation 96 % (95-98) 11/01/17 05:03 PT/INR, D-dimer PT 13.7 Seconds (9.4-12.1) H 10/31/17 06:36 Abnormal lab findings: Abnormal lab results WBC 11.7 K/mcL (4.3-11.1) H 11/01/17 03:14 RBC 4.03 M/mcL (4.19-5.50) L 11/01/17 03:14 Hgb 9.9 g/dL (12.9-16.9) L 11/01/17 03:14 Hct 33.0 % (37.5-50.1) L 11/01/17 03:14 MCV 81.9 fL (83.0-100.0) L 11/01/17 03:14 MCH 24.6 pg (28.0-33.3) L 11/01/17 03:14 MCHC 30.0 g/dL (31.6-35.5) L 11/01/17 03:14 RDW 16.9 % (11.5-14.5) H 11/01/17 03:14 Plt Count 446 K/mcL (140-400) H 11/01/17 03:14 MPV 8.5 fL (9.4-12.4) L 11/01/17 03:14 Neutrophils # 9.5 K/mcL (1.6-8.9) H 11/01/17 03:14 Nucleated RBCs/100 WBC 0.2 /100 WBC (0) H 10/31/17 06:36 PT 13.7 Seconds (9.4-12.1) H 10/31/17 06:36 ABG pCO2 47 mmHg (35-45) H 11/01/17 05:03 ABG pO2 83 mmHg (85-104) L 11/01/17 05:03 ABG HCO3 29 mEq/L (21-27) H 11/01/17 05:03 ABG Total CO2 31 mEq/L (20-26) H 11/01/17 05:03 ABG Base Excess 4 mEq/L (-2 to 3) H 11/01/17 05:03 BUN 32 mg/dL (6-20) H 11/01/17 03:14 BUN/Creatinine Ratio 28 (6-26) H 11/01/17 03:14 Glucose 138 mg/dL (70-105) H 11/01/17 03:14 POC Glucose 152 mg/dL (70-99) H 10/31/17 06:24 Troponin I 0.04 ng/mL (< 0.04) H* 10/31/17 14:11 Albumin 3.3 g/dL (3.5-5.7) L 10/31/17 06:36 Globulin 4.5 g/dL (2.4-3.5) H 10/31/17 06:36 Albumin/Globulin Ratio 0.7 (1.1-2.2) L 10/31/17 06:36 U Benzodiazepines Scrn Positive ng/mL (Jurobk=273) H 10/31/17 06:08 - Microbiology Findings Microbiology Findings: Microbiology, Last 48 Hours 10/31/17 06:36 Blood Culture - Preliminary Peripheral Venipuncture No growth. 10/31/17 06:36 Blood Culture - Preliminary Peripheral Venipuncture No growth. 10/31/17 17:30 Sputum Culture - Preliminary Sputum - Clinical Findings Intake & Output: Intake & Output 10/31/17 11/01/17 11/01/17 23:59 07:59 15:59 Intake Total 470 / 470 400 / 400 123 / 123 Output Total 200 / 200 505 / 505 Balance 270 / 270 -105 / -105 123 / 123 Weight 110.1 kg - Attending Attestation I examined this patient and my medical decision-making was reviewed with the Resident Physician. I agree with the documented findings, disposition and treatment plan as described except to the extent set forth below. Patient seen and examined. Labs, radiology, chart personally reviewed. Agree with resident's history and physical, assessment, plan with following comments: MANAGER OF QUALITY: Patient does not follows commands, patient is still having agitation and will add fentanyl for better sedation. This is a major problem for patient to get him off the ventilator. We will consider head CT Pulmonary: Acceptable oxygenation and ventilation. Patient is not tolerating spontaneous breathing trial mainly because of his agitation. We will attempt when he is more cooperative. Cardiovascular: stable GI: Nutrition per dietary and GI prophylaxis per routine Heme: DVT prophylaxis per routine ID: Continue antibiotics and plan to de-escalation Renal; urine out put and renal funtion reviewed Endorcine: blood glucose is monitored Lines: all lines checked and no evidence of infections Skin: skin care to prevent pressure ulcers per nursing routine care
[2017-11-02] MEDS: Lacri-Lube 3.5 GM TUBE BOTH EYES SCH ×4 (00:03→11:05)
[2017-11-02 04:04] LABS: Basophils # 0.1 K/mcL (0.0-0.2); Basophils % 0.4 %; Eosinophils # 0.1 K/mcL (0.0-0.6); Eosinophils % 0.8 %; Hematocrit 35.1 % (37.5-50.1); Hemoglobin 10.3 g/dL (12.9-16.9); Immature Granulocytes % 0.4 % (0-4); Lymphocytes % 7.6 %; Mean Corpuscular HGB Conc 29.3 g/dL (31.6-35.5); Mean Corpuscular Hemoglobin 24.2 pg (28.0-33.3); Mean Corpuscular Volume 82.6 fL (83.0-100.0); Mean Platelet Volume 8.4 fL (9.4-12.4); Monocytes # 1.3 K/mcL (0.0-1.3); Monocytes % 9.5 %; Neutrophils # 11.2 K/mcL (1.6-8.9); Platelet Count 544 K/mcL (140-400); Red Blood Count 4.25 M/mcL (4.19-5.50); Red Cell Distribution Width 17.2 % (11.5-14.5); Segmented Neutrophils % 81.3 %
[2017-11-02 04:31] LABS: BUN/Creatinine Ratio 33 (6-26); Blood Urea Nitrogen 38 mg/dL (6-20); Calcium 8.9 mg/dL (8.6-10.3); Carbon Dioxide 24 mEq/L (23-29); Chloride 104 mEq/L (98-107); Glucose 97 mg/dL (70-105); Osmolality,Calculated 295 (280-300); Potassium 3.9 mEq/L (3.5-5.1); Sodium 138 mEq/L (136-145); eGFR For African Americans > 60 (> 60); eGFR For Non-African Americans > 60 (> 60)
[2017-11-02 04:55] LABS: ABG Base Excess -1 mEq/L (-2 to 3); ABG HCO3 28 mEq/L (21-27); ABG Oxygen Saturation 94 % (95-98); ABG PCO2 61 mmHg (35-45); ABG PH 7.27 pH Units (7.32-7.45); ABG PO2 82 mmHg (85-104); ABG TCO2 29 mEq/L (20-26); Blood Gas Modality VC; Blood Gas PEEP 5 cm H2O; Blood Gas Respiration Rate 12; Blood Gas VT 550 cc
[2017-11-02] MEDS: FentaNYL (PF) 1,000 MCG in 0.9 % Sodium Chloride 80 ML IVC SCH (06:14)
--- NOTE | 2017-11-02 07:07 | Pulmonology Progress Note ---
Date of Encounter: 11/02/17 Time of Encounter: 07:07 Assessment and Plan (1) Acute respiratory failure with hypoxia and hypercapnia Current Visit: Yes Status: Acute Patient seen and examined at bedside Labs, radiology, chart personally reviewed. Management was reviewed during multidisciplinary critical care rounds. 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 Head CT without acute process. We will restart Precedex continue propofol and infusion of fentanyl for agitation control while intubated may need atypical antipsychotic based upon clinical course patient has a history of benzodiazepine use we have scheduled a low dose of fentanyl to prevent withdrawal seizure Pulm: Acute on chronic hypoxic hypercapnic respiratory failure this is likely secondary to pneumonia coupled with the underlying encephalopathy and alveolar hypoventilation. Mild respiratory acidosis today which given his underlying COPD is not necessarily the need of acute correction as we prepare for liberation from the vent. He is not a candidate for spontaneous breathing trial today because of agitation but hopefully with adjustment in SUPERVISOR WHITE SUGAR medications this can be attempted tomorrow. Patient has underlying COPD for which we will continue bronchodilators Cards: Blood pressure monitored and in stable FEN-GI: Start enteral nutrition per dietary recommendations continue GI prophylaxis while on vent Renal: Urine output monitored continue daily monitoring of serum creatinine and electrolytes ID: Being treated for aspiration pneumonia with think and Zosyn with planned to de-escalate over the next 24 hours based upon culture results as far have been negative Heme/Onc: He had lower extremity duplex performed yesterday was preliminary results positive for posterior tibial and peroneal vein I will start infusion of heparin for this. Per record that I can obtain there is no history of recent hemorrhage Endo: Glucose Monitored Integ/MSK: Skin Care per routine ICU Nursing Protocol to prevent ulcers. Lines: All lines examined without evidence of infection : Dispo: Remain in ICU for vent management CODE: Full (2) Pneumonia Current Visit: Yes Status: Acute Qualifiers: Pneumonia type: due to unspecified organism Laterality: bilateral Lung location: unspecified part of lung Qualified Code(s): J18.9 - Pneumonia, unspecified organism (3) Drug abuse Current Visit: Yes Status: Acute (4) DVT prophylaxis Current Visit: Yes Status: Acute (5) COPD (chronic obstructive pulmonary disease) Current Visit: Yes Status: Chronic Qualifiers: COPD type: unspecified COPD Qualified Code(s): J44.9 - Chronic obstructive pulmonary disease, unspecified Subjective Principal diagnosis: Respiratory failure Interval history: Remains intubated sedated significant agitation when sedation is lifted. Head CT without acute process Objective PUL Vital signs: Last Vital Signs Temp 98.1 F 11/02/17 03:00 Pulse 87 11/02/17 06:00 Resp 12 11/02/17 06:10 BP 134/89 11/02/17 06:10 Pulse Ox 93 11/02/17 06:10 General appearance: other (Sedated on vent) Eyes: nonicteric Auscultation: bilateral: diminished breath sounds, rales Cardiovascular: regular rate and rhythm Gastrointestinal: normoactive bowel sounds, soft, non-tender Extremities: edema (Trace bilateral lower extremity edema), other (Mild surrounding lower extremity erythema) normal mental status, non-focal exam (Patient is noted to move all extremities with lowering of sedation without clear evidence of deficit), pupils equal and round, other (Pulses are palpable in the distal extremities there are also warm to touch without evidence of cyanosis) Ventilator Settings Ventilator Settings: Ventilator Settings, Last 8 Hours Ventilator Mode VC+ Ventilator Mode VC+ Ventilator Mode VC+ Ventilator Mode VC+ Ventilator Mode VC+ Ventilator Mode VC+ Ventilator Mode VC+ Ventilator Mode VC+ Ventilator Mode VC+ Ventilator Mode VC+ Ventilator Mode VC+ Ventilator Mode VC+ Ventilator Tidal Volume 550 Setting Ventilator Tidal Volume 550 Setting Ventilator Tidal Volume 550 Setting Ventilator Tidal Volume 550 Setting Ventilator Tidal Volume 550 Setting Ventilator Tidal Volume 550 Setting Ventilator Tidal Volume 550 Setting Ventilator Tidal Volume 550 Setting Ventilator Tidal Volume 550 Setting Ventilator Tidal Volume 550 Setting Ventilator Tidal Volume 550 Setting Ventilator Tidal Volume 550 Setting Ventilator Respiratory Rate 12 Setting Ventilator Respiratory Rate 12 Setting Ventilator Respiratory Rate 12 Setting Ventilator Respiratory Rate 12 Setting Ventilator Respiratory Rate 12 Setting Ventilator Respiratory Rate 12 Setting Ventilator Respiratory Rate 12 Setting Ventilator Respiratory Rate 12 Setting Ventilator Respiratory Rate 12 Setting Ventilator Respiratory Rate 12 Setting Ventilator Respiratory Rate 12 Setting Ventilator Respiratory Rate 12 Setting Actual Respiratory Rate 12 Actual Respiratory Rate 12 Actual Respiratory Rate 14 Actual Respiratory Rate 13 Actual Respiratory Rate 14 Actual Respiratory Rate 15 Actual Respiratory Rate 15 Actual Respiratory Rate 15 Actual Respiratory Rate 15 Actual Respiratory Rate 16 Positive End Expiratory 5 Pressure Positive End Expiratory 5 Pressure Positive End Expiratory 5 Pressure Positive End Expiratory 5 Pressure Positive End Expiratory 5 Pressure Positive End Expiratory 5 Pressure Positive End Expiratory 5 Pressure Positive End Expiratory 5 Pressure Positive End Expiratory 5 Pressure Positive End Expiratory 5 Pressure Positive End Expiratory 5 Pressure Positive End Expiratory 5 Pressure Peak Inspiratory Airway 44 Pressure Peak Inspiratory Airway 42 Pressure Peak Inspiratory Airway 44 Pressure Peak Inspiratory Airway 42 Pressure Peak Inspiratory Airway 38 Pressure Peak Inspiratory Airway 44 Pressure Peak Inspiratory Airway 40 Pressure Peak Inspiratory Airway 40 Pressure Peak Inspiratory Airway 23 Pressure Peak Inspiratory Airway 13 Pressure Peak Inspiratory Airway 13 Pressure Results - Laboratory Findings CBC and BMP: 11/02/17 03:35 11/02/17 03:35 ABG ABG pH 7.27 pH Units (7.32-7.45) L 11/02/17 04:51 ABG pCO2 61 mmHg (35-45) H 11/02/17 04:51 ABG pO2 82 mmHg (85-104) L 11/02/17 04:51 ABG O2 Saturation 94 % (95-98) L 11/02/17 04:51 PT/INR, D-dimer PT 13.7 Seconds (9.4-12.1) H 10/31/17 06:36 Abnormal lab findings: Abnormal lab results WBC 13.7 K/mcL (4.3-11.1) H 11/02/17 03:35 Hgb 10.3 g/dL (12.9-16.9) L 11/02/17 03:35 Hct 35.1 % (37.5-50.1) L 11/02/17 03:35 MCV 82.6 fL (83.0-100.0) L 11/02/17 03:35 MCH 24.2 pg (28.0-33.3) L 11/02/17 03:35 MCHC 29.3 g/dL (31.6-35.5) L 11/02/17 03:35 RDW 17.2 % (11.5-14.5) H 11/02/17 03:35 Plt Count 544 K/mcL (140-400) H 11/02/17 03:35 MPV 8.4 fL (9.4-12.4) L 11/02/17 03:35 Neutrophils # 11.2 K/mcL (1.6-8.9) H 11/02/17 03:35 Nucleated RBCs/100 WBC 0.2 /100 WBC (0) H 10/31/17 06:36 PT 13.7 Seconds (9.4-12.1) H 10/31/17 06:36 ABG pH 7.27 pH Units (7.32-7.45) L 11/02/17 04:51 ABG pCO2 61 mmHg (35-45) H 11/02/17 04:51 ABG pO2 82 mmHg (85-104) L 11/02/17 04:51 ABG HCO3 28 mEq/L (21-27) H 11/02/17 04:51 ABG Total CO2 29 mEq/L (20-26) H 11/02/17 04:51 ABG O2 Saturation 94 % (95-98) L 11/02/17 04:51 BUN 38 mg/dL (6-20) H 11/02/17 03:35 BUN/Creatinine Ratio 33 (6-26) H 11/02/17 03:35 POC Glucose 152 mg/dL (70-99) H 10/31/17 06:24 Troponin I 0.04 ng/mL (< 0.04) H* 10/31/17 14:11 Albumin 3.3 g/dL (3.5-5.7) L 10/31/17 06:36 Globulin 4.5 g/dL (2.4-3.5) H 10/31/17 06:36 Albumin/Globulin Ratio 0.7 (1.1-2.2) L 10/31/17 06:36 Vancomycin Trough 21 mcg/mL (5-10) H 11/01/17 18:41 U Benzodiazepines Scrn Positive ng/mL (Bkopsh=429) H 10/31/17 06:08 - Microbiology Findings Microbiology Findings: Microbiology, Last 48 Hours 10/31/17 17:30 Sputum Culture - Preliminary Sputum 10/31/17 06:36 Blood Culture - Preliminary Peripheral Venipuncture No growth. 10/31/17 06:36 Blood Culture - Preliminary Peripheral Venipuncture No growth. - Clinical Findings Intake & Output: Intake & Output 11/01/17 11/01/17 11/02/17 15:59 23:59 07:59 Intake Total 506 / 506 717 / 717 400 / 400 Output Total 445 / 445 875 / 875 300 / 300 Balance 61 / 61 -158 / -158 100 / 100 Weight 110 kg Consult Discharge Plan - Plan [facility]errals: [facility] [Primary Care Provider] -
[2017-11-02] MEDS ORDERED: Aminoglycoside Consult 1 EACH MC ONE (07:50)
[2017-11-02] MEDS: Budesonide/Formoterol 160/4.5 MDI IH SCH ×2 (07:57→21:44)
[2017-11-02] MEDS: *HR* Heparin 5,000 UNIT/ML VIAL SQ SCH (08:01)
[2017-11-02] MEDS: Chlorhexidine Rinse 15 ML MOUTHWASH MM SCH ×2 (08:01→21:34)
[2017-11-02] MEDS: Pantoprazole 40 MG VIAL IVP SCH (08:02)
[2017-11-02] MEDS: Dexmedetomidine HCl 400 MCG/100 ML MLS IVC SCH (08:02)
[2017-11-02] MEDS: Piperacillin/Tazobactam 3.375 GM in 0.9 % Sodium Chloride Mini Bag 100 ML IVPB SCH ×3 (08:02→23:52)
[2017-11-02] MEDS: Levofloxacin 750 MG/150 ML 750 MG/150 ML BAG IVPB SCH (08:03)
[2017-11-02] MEDS ORDERED: *HR* Heparin 5,000 UNIT/ML VIAL IVP ONE (08:44)
[2017-11-02] MEDS ORDERED: *HR* Heparin 5,000 UNIT/ML VIAL IVP PRN ×2 (08:44)
[2017-11-02 09:38] LABS: Hematocrit 36.3 % (37.5-50.1); Hemoglobin 10.6 g/dL (12.9-16.9); Mean Corpuscular HGB Conc 29.2 g/dL (31.6-35.5); Mean Corpuscular Hemoglobin 24.8 pg (28.0-33.3); Mean Platelet Volume 8.5 fL (9.4-12.4); Platelet Count 601 K/mcL (140-400); Red Blood Count 4.27 M/mcL (4.19-5.50); Red Cell Distribution Width 17.2 % (11.5-14.5)
[2017-11-02 09:44] LABS: INR 1.6; Prothrombin Time 17.3 Seconds (9.4-12.1)
[2017-11-02 09:46] LABS: Activated Partial Thrombo Time 76.4 Seconds (26.0-36.0)
[2017-11-02] MEDS: Heparin 25,000 UNIT/500 ML D5W 25,000 UNIT/500 ML BAG IVC SCH (09:55)
[2017-11-02] MEDS ORDERED: methylPREDNISolone 125 MG/2 ML VIAL ONE (10:59)
[2017-11-02] MEDS ORDERED: Dextrose Gel 15 GM/37.5 ML TUBE PO PRN ×2 (11:29)
[2017-11-02] MEDS ORDERED: D5% in Water 1,000 ML IVC PRN (11:29)
[2017-11-02] MEDS ORDERED: *HR* Dextrose 50 % in Water (Syg) 50 ML SYRINGE IVP PRN (11:29)
[2017-11-02] MEDS ORDERED: MethylPREDNISolone 40 MG/ML VIAL IVP ONE (14:29)
[2017-11-02] MEDS: Insulin LISPRO 300 UNITS/3 ML VIAL SQ SCH ×4 (18:08→23:52)
[2017-11-03 00:44] LABS: Basophils % 0.1 %; Hematocrit 31.7 % (37.5-50.1); Hemoglobin 9.4 g/dL (12.9-16.9); Immature Granulocytes % 0.6 % (0-4); Lymphocytes # 0.7 K/mcL (0.6-4.6); Lymphocytes % 4.5 %; Mean Corpuscular HGB Conc 29.7 g/dL (31.6-35.5); Mean Corpuscular Hemoglobin 24.7 pg (28.0-33.3); Mean Corpuscular Volume 83.4 fL (83.0-100.0); Mean Platelet Volume 8.4 fL (9.4-12.4); Monocytes # 0.7 K/mcL (0.0-1.3); Monocytes % 4.8 %; Platelet Count 492 K/mcL (140-400); Red Cell Distribution Width 16.6 % (11.5-14.5)
[2017-11-03] MEDS: Heparin 25,000 UNIT/500 ML D5W 25,000 UNIT/500 ML BAG IVC SCH (01:04)
[2017-11-03 01:06] LABS: BUN/Creatinine Ratio 33 (6-26); Blood Urea Nitrogen 29 mg/dL (6-20); Calcium 8.6 mg/dL (8.6-10.3); Carbon Dioxide 26 mEq/L (23-29); Chloride 103 mEq/L (98-107); Glucose 162 mg/dL (70-105); Osmolality,Calculated 293 (280-300); Potassium 4.1 mEq/L (3.5-5.1); Sodium 137 mEq/L (136-145); eGFR For African Americans > 60 (> 60); eGFR For Non-African Americans > 60 (> 60)
[2017-11-03] MEDS: Insulin LISPRO 300 UNITS/3 ML VIAL SQ SCH ×5 (05:07→20:35)
--- NOTE | 2017-11-03 07:18 | Pulmonology Progress Note ---
<Saul Fraga W - Last Filed: 11/03/17 11:37> Date of Encounter: 11/03/17 Assessment and Plan (1) Acute respiratory failure with hypoxia and hypercapnia Current Visit: Yes Status: Resolved (2) Pneumonia Current Visit: Yes Status: Acute Qualifiers: Pneumonia type: due to unspecified organism Laterality: bilateral Lung location: unspecified part of lung Qualified Code(s): J18.9 - Pneumonia, unspecified organism (3) Drug abuse Current Visit: Yes Status: Chronic (4) DVT prophylaxis Current Visit: Yes Status: Acute (5) COPD (chronic obstructive pulmonary disease) Current Visit: Yes Status: Chronic Qualifiers: COPD type: unspecified COPD Qualified Code(s): J44.9 - Chronic obstructive pulmonary disease, unspecified Objective PUL Vital signs: Last Vital Signs Temp 96.9 F L 11/03/17 07:29 Pulse 66 11/03/17 07:52 Resp 16 11/03/17 08:06 BP 129/82 11/03/17 07:29 Pulse Ox 96 11/03/17 08:06 Results - Laboratory Findings CBC and BMP: 11/03/17 00:36 11/03/17 00:36 ABG ABG pH 7.27 pH Units (7.32-7.45) L 11/02/17 04:51 ABG pCO2 61 mmHg (35-45) H 11/02/17 04:51 ABG pO2 82 mmHg (85-104) L 11/02/17 04:51 ABG O2 Saturation 94 % (95-98) L 11/02/17 04:51 PT/INR, D-dimer PT 17.3 Seconds (9.4-12.1) H 11/02/17 09:03 Abnormal lab findings: Abnormal lab results WBC 14.4 K/mcL (4.3-11.1) H 11/03/17 00:36 RBC 3.80 M/mcL (4.19-5.50) L 11/03/17 00:36 Hgb 9.4 g/dL (12.9-16.9) L 11/03/17 00:36 Hct 31.7 % (37.5-50.1) L 11/03/17 00:36 MCH 24.7 pg (28.0-33.3) L 11/03/17 00:36 MCHC 29.7 g/dL (31.6-35.5) L 11/03/17 00:36 RDW 16.6 % (11.5-14.5) H 11/03/17 00:36 Plt Count 492 K/mcL (140-400) H 11/03/17 00:36 MPV 8.4 fL (9.4-12.4) L 11/03/17 00:36 Neutrophils # 13.0 K/mcL (1.6-8.9) H 11/03/17 00:36 Nucleated RBCs/100 WBC 0.2 /100 WBC (0) H 10/31/17 06:36 PT 17.3 Seconds (9.4-12.1) H 11/02/17 09:03 APTT 50.3 Seconds (26.0-36.0) H 11/03/17 06:42 ABG pH 7.27 pH Units (7.32-7.45) L 11/02/17 04:51 ABG pCO2 61 mmHg (35-45) H 11/02/17 04:51 ABG pO2 82 mmHg (85-104) L 11/02/17 04:51 ABG HCO3 28 mEq/L (21-27) H 11/02/17 04:51 ABG Total CO2 29 mEq/L (20-26) H 11/02/17 04:51 ABG O2 Saturation 94 % (95-98) L 11/02/17 04:51 BUN 29 mg/dL (6-20) H 11/03/17 00:36 BUN/Creatinine Ratio 33 (6-26) H 11/03/17 00:36 Glucose 162 mg/dL (70-105) H 11/03/17 00:36 POC Glucose 124 mg/dL (70-99) H 11/03/17 07:34 Troponin I 0.04 ng/mL (< 0.04) H* 10/31/17 14:11 Albumin 3.3 g/dL (3.5-5.7) L 10/31/17 06:36 Globulin 4.5 g/dL (2.4-3.5) H 10/31/17 06:36 Albumin/Globulin Ratio 0.7 (1.1-2.2) L 10/31/17 06:36 Vancomycin Trough 21 mcg/mL (5-10) H 11/01/17 18:41 U Benzodiazepines Scrn Positive ng/mL (Hagnyj=602) H 10/31/17 06:08 - Microbiology Findings Microbiology Findings: Microbiology, Last 48 Hours 10/31/17 17:30 Sputum Culture - Final Sputum 10/31/17 06:36 Blood Culture - Preliminary Peripheral Venipuncture No growth. 10/31/17 06:36 Blood Culture - Preliminary Peripheral Venipuncture No growth. - Clinical Findings Intake & Output: Intake & Output 11/02/17 11/03/17 11/03/17 23:59 07:59 15:59 Intake Total 1099 / 1099 531 / 531 Output Total 1450 / 1450 650 / 650 Balance -351 / -351 -119 / -119 Consult Discharge Plan - Plan [facility]errals: [facility] [Primary Care Provider] - - Attending Attestation I examined this patient and my medical decision-making was reviewed with the Resident Physician. I agree with the documented findings, disposition and treatment plan as described except to the extent set forth below. We independently had [id number] contact with the patient Patient seen and examined at bedside Labs, radiology, chart personally reviewed. Management was reviewed during multidisciplinary critical care rounds. 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 Lines: All lines examined without evidence of infection : Dispo: Stable for med [employer]. CODE: Full Code <ThomasDevante cruz - Last Filed: 11/03/17 11:53> Date of Encounter: 11/03/17 Time of Encounter: 08:06 Assessment and Plan (1) Acute respiratory failure with hypoxia and hypercapnia Current Visit: Yes Status: Resolved Resolved. Patient self extubated on 11/02/17 Patient presented with acute respiratory failure necessitating emergent intubation on 10/31/17. Likely multifactorial with concern for drug ingestion or withdrawal as well as underlying COPD with hypercapnic respiratory acidosis and pneumonia. Albuterol and Symbicort as ordered. Continue treatment for pneumonia. (2) Pneumonia Current Visit: Yes Status: Acute Chest x-ray with pulmonary edema versus pneumonia. Leukocytosis improving There was concern for aspiration as per documentation. Blood cultures 10/31/17: No growth to date. Sputum culture with moderate WBC, few gram-positive cocci, a few gram-negative rods, few gram-negative diplococci Previously on vancomycin and Zosyn, transitioned to Augmentin today. Qualifiers: Pneumonia type: due to unspecified organism Laterality: bilateral Lung location: unspecified part of lung Qualified Code(s): J18.9 - Pneumonia, unspecified organism (3) DVT (deep venous thrombosis) Current Visit: Yes Status: Acute 11/02/17: DVT evaluation left lower extremit: Left posterior tibial and peroneal veins with acute thrombus. On heparin drip, transitioned to Lovenox today. Qualifiers: DVT location: lower extremity Affected thrombotic vein of extremity: popliteal Chronicity: acute Laterality: left Qualified Code(s): I82.432 - Acute embolism and thrombosis of left popliteal vein (4) Drug abuse Current Visit: Yes Status: Chronic As per records history of methamphetamine abuse. Was sent from the [facility] where he was admitted for drug rehabilitation. Unsure of evening circumstances with concern for potential overdose or withdrawal. Urine drug screen positive for benzos however he received sedatives prior to transfer. Continue to monitor for drug withdrawal. (5) COPD (chronic obstructive pulmonary disease) Current Visit: Yes Status: Chronic Continue albuterol and Symbicort Currently on nasal cannula. CPAP as needed. Qualifiers: COPD type: unspecified COPD Qualified Code(s): J44.9 - Chronic obstructive pulmonary disease, unspecified (6) DVT prophylaxis Current Visit: Yes Status: Acute On Lovenox for DVT treatment Subjective Principal diagnosis: Respiratory failure Interval history: Patient self extubated yesterday. No events overnight was on CPAP without any issue. Weaned nasal cannula this morning. He voices no complaints. Plan 11/03/17: Continue to wean noninvasive positive pressure ventilation as tolerated to nasal cannula. Discontinued vanc/zosyn. Started augmentin. Signed out to Dr. Enamorado. Objective PUL Vital signs: Last Vital Signs Temp 98.4 F 11/03/17 00:00 Pulse 66 11/03/17 06:00 Resp 16 11/03/17 06:00 BP 119/87 11/03/17 06:00 Pulse Ox 100 11/03/17 06:00 General appearance: no acute distress Eyes: nonicteric ENT: oropharynx moist Effort: mildly labored Auscultation: bilateral: rhonchi Cardiovascular: regular rate and rhythm Gastrointestinal: soft, non-tender, non-distended Integumentary: normal Extremities: no cyanosis, no edema Musculoskeletal: no deformities normal mental status Results - Laboratory Findings CBC and BMP: 11/03/17 00:36 11/03/17 00:36 ABG ABG pH 7.27 pH Units (7.32-7.45) L 11/02/17 04:51 ABG pCO2 61 mmHg (35-45) H 11/02/17 04:51 ABG pO2 82 mmHg (85-104) L 11/02/17 04:51 ABG O2 Saturation 94 % (95-98) L 11/02/17 04:51 PT/INR, D-dimer PT 17.3 Seconds (9.4-12.1) H 11/02/17 09:03 Abnormal lab findings: Abnormal lab results WBC 14.4 K/mcL (4.3-11.1) H 11/03/17 00:36 RBC 3.80 M/mcL (4.19-5.50) L 11/03/17 00:36 Hgb 9.4 g/dL (12.9-16.9) L 11/03/17 00:36 Hct 31.7 % (37.5-50.1) L 11/03/17 00:36 MCH 24.7 pg (28.0-33.3) L 11/03/17 00:36 MCHC 29.7 g/dL (31.6-35.5) L 11/03/17 00:36 RDW 16.6 % (11.5-14.5) H 11/03/17 00:36 Plt Count 492 K/mcL (140-400) H 11/03/17 00:36 MPV 8.4 fL (9.4-12.4) L 11/03/17 00:36 Neutrophils # 13.0 K/mcL (1.6-8.9) H 11/03/17 00:36 Nucleated RBCs/100 WBC 0.2 /100 WBC (0) H 10/31/17 06:36 PT 17.3 Seconds (9.4-12.1) H 11/02/17 09:03 APTT 51.2 Seconds (26.0-36.0) H 11/03/17 00:36 ABG pH 7.27 pH Units (7.32-7.45) L 11/02/17 04:51 ABG pCO2 61 mmHg (35-45) H 11/02/17 04:51 ABG pO2 82 mmHg (85-104) L 11/02/17 04:51 ABG HCO3 28 mEq/L (21-27) H 11/02/17 04:51 ABG Total CO2 29 mEq/L (20-26) H 11/02/17 04:51 ABG O2 Saturation 94 % (95-98) L 11/02/17 04:51 BUN 29 mg/dL (6-20) H 11/03/17 00:36 BUN/Creatinine Ratio 33 (6-26) H 11/03/17 00:36 Glucose 162 mg/dL (70-105) H 11/03/17 00:36 POC Glucose 140 mg/dL (70-99) H 11/03/17 04:47 Troponin I 0.04 ng/mL (< 0.04) H* 10/31/17 14:11 Albumin 3.3 g/dL (3.5-5.7) L 10/31/17 06:36 Globulin 4.5 g/dL (2.4-3.5) H 10/31/17 06:36 Albumin/Globulin Ratio 0.7 (1.1-2.2) L 10/31/17 06:36 Vancomycin Trough 21 mcg/mL (5-10) H 11/01/17 18:41 U Benzodiazepines Scrn Positive ng/mL (Xvwadz=284) H 10/31/17 06:08 - Microbiology Findings Microbiology Findings: Microbiology, Last 48 Hours 10/31/17 17:30 Sputum Culture - Preliminary Sputum 10/31/17 06:36 Blood Culture - Preliminary Peripheral Venipuncture No growth. 10/31/17 06:36 Blood Culture - Preliminary Peripheral Venipuncture No growth. - Clinical Findings Intake & Output: Intake & Output 11/02/17 11/02/17 11/03/17 15:59 23:59 07:59 Intake Total 532 / 532 1099 / 1099 331 / 331 Output Total 650 / 650 1450 / 1450 300 / 300 Balance -118 / -118 -351 / -351
[2017-11-03] MEDS: Chlorhexidine Rinse 15 ML MOUTHWASH MM SCH (07:38)
[2017-11-03] MEDS: Pantoprazole 40 MG VIAL IVP SCH (07:39)
[2017-11-03] MEDS: Piperacillin/Tazobactam 3.375 GM in 0.9 % Sodium Chloride Mini Bag 100 ML IVPB SCH (07:39)
[2017-11-03] MEDS: Budesonide/Formoterol 160/4.5 MDI IH SCH ×2 (08:06→20:01)
[2017-11-03] MEDS ORDERED: Aspirin 81 MG TAB.CHEW GTUBE SCH (09:00)
[2017-11-03] MEDS ORDERED: Aspirin 81 MG TAB.CHEW PO SCH (09:00)
[2017-11-03] MEDS ORDERED: Multivit/Ca/Min/Fe/FA 1 TAB TABLET PO SCH (09:00)
[2017-11-03] MEDS ORDERED: Tiotropium 18 MCG inhalation IH SCH (10:00)
[2017-11-03] MEDS ORDERED: 0.9 % Sodium Chloride 250 ML ONE (10:28)
[2017-11-03] MEDS ORDERED: *HR* Enoxaparin 120 MG/0.8 ML SYRINGE SQ SCH (18:00)
[2017-11-03] MEDS ORDERED: D5% in Water 1,000 ML IVC PRN (22:56)
[2017-11-03] MEDS ORDERED: Naloxone 0.4 MG/ML INJ IVP PRN (22:56)
[2017-11-03] MEDS ORDERED: *HR* LORazepam 2 MG/ML VIAL IVP PRN (22:56)
[2017-11-03] MEDS ORDERED: *HR* Dextrose 50 % in Water (Syg) 50 ML SYRINGE IVP PRN (22:56)
[2017-11-03] MEDS ORDERED: Acetaminophen 325 MG TABLET PO PRN (22:56)
[2017-11-03] MEDS ORDERED: Dextrose Gel 15 GM/37.5 ML TUBE PO PRN ×2 (22:56)
[2017-11-04 03:24] LABS: Basophils # 0.1 K/mcL (0.0-0.2); Basophils % 0.4 %; Eosinophils # 0.1 K/mcL (0.0-0.6); Hematocrit 29.6 % (37.5-50.1); Hemoglobin 8.9 g/dL (12.9-16.9); Immature Granulocytes % 0.5 % (0-4); Mean Corpuscular HGB Conc 30.1 g/dL (31.6-35.5); Mean Corpuscular Hemoglobin 24.6 pg (28.0-33.3); Mean Corpuscular Volume 81.8 fL (83.0-100.0); Mean Platelet Volume 8.6 fL (9.4-12.4); Monocytes # 1.1 K/mcL (0.0-1.3); Monocytes % 7.9 %; Neutrophils # 10.2 K/mcL (1.6-8.9); Platelet Count 515 K/mcL (140-400); Red Blood Count 3.62 M/mcL (4.19-5.50); Red Cell Distribution Width 16.5 % (11.5-14.5); Segmented Neutrophils % 75.2 %
[2017-11-04 03:44] LABS: BUN/Creatinine Ratio 34 (6-26); Blood Urea Nitrogen 27 mg/dL (6-20); Calcium 8.5 mg/dL (8.6-10.3); Carbon Dioxide 30 mEq/L (23-29); Chloride 103 mEq/L (98-107); Glucose 112 mg/dL (70-105); Osmolality,Calculated 292 (280-300); Potassium 3.6 mEq/L (3.5-5.1); Sodium 138 mEq/L (136-145); eGFR For African Americans > 60 (> 60); eGFR For Non-African Americans > 60 (> 60)
[2017-11-04] MEDS ORDERED: *HR* Enoxaparin 120 MG/0.8 ML SYRINGE SQ SCH (06:00)
[2017-11-04] MEDS: Budesonide/Formoterol 160/4.5 MDI IH SCH ×2 (07:43→19:50)
[2017-11-04] MEDS: Tiotropium 18 MCG inhalation IH SCH (07:44)
--- NOTE | 2017-11-04 07:49 | Pulmonology Progress Note ---
Date of Encounter: 11/04/17 Time of Encounter: 07:47 Assessment and Plan (1) Acute respiratory failure with hypoxia and hypercapnia Current Visit: Yes Status: Resolved This is improved markedly since admission. He will need continued oxygen support to keep saturation greater than 88% around 92% Continue out of bed to chair ambulation and incentive spirometry to mitigate the effects of VQ mismatch secondary to atelectasis (2) Pneumonia Current Visit: Yes Status: Acute Concern for aspiration pneumonia on admission Patient has been transitioned to Augmentin to complete a a total antibiotic 7 day course Qualifiers: Pneumonia type: due to unspecified organism Laterality: bilateral Lung location: unspecified part of lung Qualified Code(s): J18.9 - Pneumonia, unspecified organism (3) Drug abuse Current Visit: Yes Status: Chronic Patient follows a the [place] for this he can be transferred back to inpatient observation (4) COPD (chronic obstructive pulmonary disease) Current Visit: Yes Status: Chronic Continue oral prednisone to complete a two-week taper Continue Symbicort twice daily Continue scheduled duo nebs every 6 hours Outpatient pulmonary follow-up at the [place] with Dr. Kaufman Qualifiers: COPD type: unspecified COPD Qualified Code(s): J44.9 - Chronic obstructive pulmonary disease, unspecified (5) DVT (deep venous thrombosis) Current Visit: Yes Status: Acute Patient is currently on ox apparent for this with plan to transition to oral agent based upon [place] formulary coverage director of child welfare services is helping to evaluate this The patient is pending transfer to [facility] telemetry bed in this hospital or alternatively if continues to make progress he can be transferred back to the [place] for ongoing care Qualifiers: DVT location: lower extremity Affected thrombotic vein of extremity: popliteal Chronicity: acute Laterality: left Qualified Code(s): I82.432 - Acute embolism and thrombosis of left popliteal vein Subjective Principal diagnosis: Respiratory failure Interval history: Stable off BiPAP over last 24 hours remains on small amount nasal cannula awaiting transfer out of ICU to a medical telemetry bed Objective PUL Vital signs: Last Vital Signs Temp 99.2 F 11/04/17 00:14 Pulse 78 11/04/17 04:00 Resp 18 11/04/17 07:44 BP 148/90 11/04/17 04:00 Pulse Ox 91 11/04/17 07:44 General appearance: no acute distress Effort: normal Auscultation: bilateral: diminished breath sounds, rhonchi Cardiovascular: regular rate and rhythm Gastrointestinal: normoactive bowel sounds normal mental status, non-focal exam mood appropriate Results - Laboratory Findings CBC and BMP: 11/04/17 02:35 11/04/17 02:35 ABG ABG pH 7.27 pH Units (7.32-7.45) L 11/02/17 04:51 ABG pCO2 61 mmHg (35-45) H 11/02/17 04:51 ABG pO2 82 mmHg (85-104) L 11/02/17 04:51 ABG O2 Saturation 94 % (95-98) L 11/02/17 04:51 PT/INR, D-dimer PT 17.3 Seconds (9.4-12.1) H 11/02/17 09:03 Abnormal lab findings: Abnormal lab results WBC 13.5 K/mcL (4.3-11.1) H 11/04/17 02:35 RBC 3.62 M/mcL (4.19-5.50) L 11/04/17 02:35 Hgb 8.9 g/dL (12.9-16.9) L 11/04/17 02:35 Hct 29.6 % (37.5-50.1) L 11/04/17 02:35 MCV 81.8 fL (83.0-100.0) L 11/04/17 02:35 MCH 24.6 pg (28.0-33.3) L 11/04/17 02:35 MCHC 30.1 g/dL (31.6-35.5) L 11/04/17 02:35 RDW 16.5 % (11.5-14.5) H 11/04/17 02:35 Plt Count 515 K/mcL (140-400) H 11/04/17 02:35 MPV 8.6 fL (9.4-12.4) L 11/04/17 02:35 Neutrophils # 10.2 K/mcL (1.6-8.9) H 11/04/17 02:35 Nucleated RBCs/100 WBC 0.2 /100 WBC (0) H 10/31/17 06:36 PT 17.3 Seconds (9.4-12.1) H 11/02/17 09:03 APTT 50.3 Seconds (26.0-36.0) H 11/03/17 06:42 ABG pH 7.27 pH Units (7.32-7.45) L 11/02/17 04:51 ABG pCO2 61 mmHg (35-45) H 11/02/17 04:51 ABG pO2 82 mmHg (85-104) L 11/02/17 04:51 ABG HCO3 28 mEq/L (21-27) H 11/02/17 04:51 ABG Total CO2 29 mEq/L (20-26) H 11/02/17 04:51 ABG O2 Saturation 94 % (95-98) L 11/02/17 04:51 Carbon Dioxide 30 mEq/L (23-29) H 11/04/17 02:35 BUN 27 mg/dL (6-20) H 11/04/17 02:35 BUN/Creatinine Ratio 34 (6-26) H 11/04/17 02:35 Glucose 112 mg/dL (70-105) H 11/04/17 02:35 POC Glucose 119 mg/dL (70-99) H 11/03/17 20:06 Calcium 8.5 mg/dL (8.6-10.3) L 11/04/17 02:35 Troponin I 0.04 ng/mL (< 0.04) H* 10/31/17 14:11 Albumin 3.3 g/dL (3.5-5.7) L 10/31/17 06:36 Globulin 4.5 g/dL (2.4-3.5) H 10/31/17 06:36 Albumin/Globulin Ratio 0.7 (1.1-2.2) L 10/31/17 06:36 Vancomycin Trough 21 mcg/mL (5-10) H 11/01/17 18:41 U Benzodiazepines Scrn Positive ng/mL (Julejb=947) H 10/31/17 06:08 - Microbiology Findings Microbiology Findings: Microbiology, Last 48 Hours 10/31/17 17:30 Sputum Culture - Final Sputum - Clinical Findings Intake & Output: Intake & Output 11/03/17 11/03/17 11/04/17 15:59 23:59 07:59 Intake Total 820 / 820 360 / 360 Output Total 900 / 900 1000 / 1000 551 / 551 Balance -80 / -80 -640 / -640 -551 / -551 Weight 110.6 kg Consult Discharge Plan - Plan Referrals: [facility] [Primary Care Provider] -
[2017-11-04] MEDS: Insulin LISPRO 300 UNITS/3 ML VIAL SQ SCH ×4 (07:51→20:38)
[2017-11-04] MEDS: Aspirin 81 MG TAB.CHEW PO SCH (07:52)
[2017-11-04] MEDS: Multivit/Ca/Min/Fe/FA 1 TAB TABLET PO SCH (07:53)
[2017-11-04] MEDS: predniSONE 20 MG TABLET PO SCH (15:27)
[2017-11-04] MEDS: *HR* Rivaroxaban 15 MG TABLET PO SCH (16:41)
[2017-11-05] MEDS: Budesonide/Formoterol 160/4.5 MDI IH SCH (08:09)
[2017-11-05] MEDS: Tiotropium 18 MCG inhalation IH SCH (08:10)
[2017-11-05] MEDS: predniSONE 20 MG TABLET PO SCH (08:43)
[2017-11-05] MEDS: *HR* Rivaroxaban 15 MG TABLET PO SCH (08:43)
[2017-11-05] MEDS: Multivit/Ca/Min/Fe/FA 1 TAB TABLET PO SCH (08:43)
[2017-11-05] MEDS: Aspirin 81 MG TAB.CHEW PO SCH (08:43)
[2017-11-05] MEDS: Insulin LISPRO 300 UNITS/3 ML VIAL SQ SCH ×2 (08:43→12:23)
--- NOTE | 2017-11-05 13:41 | Discharge Summary ---
- NOTES TO OUTPATIENT PROVIDER Notes to Outpatient Provider: Resp failure s/p intubation, left leg DVT, started on Xarelto Date of Encounter: 11/05/17 Time of Encounter: 08:45 - Discharge Diagnosis (1) Acute respiratory failure with hypoxia and hypercapnia Priority: Primary Status: Resolved (2) Pneumonia Priority: Primary Status: Acute Qualifiers: Pneumonia type: due to unspecified organism Laterality: bilateral Lung location: unspecified part of lung Qualified Code(s): J18.9 - Pneumonia, unspecified organism (3) Drug abuse Priority: Secondary Status: Chronic (4) Diabetes mellitus Priority: Secondary Status: Chronic Qualifiers: Diabetes mellitus type: type 2 Diabetes mellitus middle or intermediate school principal insulin use: without middle or intermediate school principal use Diabetes mellitus complication status: with unspecified complications Qualified Code(s): E11.8 - Type 2 diabetes mellitus with unspecified complications (5) DVT (deep venous thrombosis) Priority: Primary Status: Acute Qualifiers: DVT location: lower extremity Affected thrombotic vein of extremity: popliteal Chronicity: acute Laterality: left Qualified Code(s): I82.432 - Acute embolism and thrombosis of left popliteal vein (6) COPD (chronic obstructive pulmonary disease) Priority: Secondary Status: Chronic Qualifiers: COPD type: unspecified COPD Qualified Code(s): J44.9 - Chronic obstructive pulmonary disease, unspecified Hospital course: Mr. Mayberry is a 57 year old male with the above medical problems, who was sent from [facility] with altered mental status, respiratory failure and suspected aspiration Pneumonia. Patient was noted to be in respiratory failure and unresponsive upon arrival, and he was emergently intubated in the ICU. He was started on broad spectrum IV antibiotics for suspected pneumonia. 2 sets of peripheral blood cultures and sputum culture were negative. He was successfully extubated, initially required supplemental oxygen and intermittent BiPAP support, currently saturating well on room air. He is being continued on oral Augmentin. Venous Doppler of left lower extremity showed an acute thrombosis and left posterior tibial and peroneal vein. He was treated with anticoagulation initially with subcutaneous Lovenox, now switched to oral Xarelto. Physical therapy evaluation was completed, recommended rehabilitation placement. Patient is currently medically stable to be transferred to medical unit at the [facility] facility. Discharge discussed with: patient - Time Spent with Patient Total time spent providing and/or coordinating discharge services: Greater than 30 minutes (45 min) - Discharge Medications Home Medications: Albuterol Neb [Proventil Neb] 2.5 mg IH TID PRN 10/31/17 [History] Albuterol Sulfate [Proair Hfa] 2 puff IH QID PRN 10/31/17 [History] Aspirin [Lo-Dose Aspirin EC] 81 mg PO DAILY 10/31/17 [History] Atorvastatin [Lipitor] 40 mg PO HS 10/31/17 [History] Citalopram Hydrobromide [Citalopram HBr] 40 mg PO DAILY 10/31/17 [History] Ferrous Sulfate [Iron] 325 mg PO TID 10/31/17 [History] Metformin HCl [Metformin HCl ER] 500 mg PO DAILY 10/31/17 [History] Multivit-Min/FA/Lycopen/Lutein [A Thru Z Select Men 50+ Tablet] 1 tab PO DAILY 10/31/17 [History] NALOXONE 4 MG Nasal [place] [Narcan] 4 mg NS AD PRN 10/31/17 [History] Naproxen [Naprosyn] 250 mg PO TID 10/31/17 [History] Sildenafil Citrate [Viagra] 25 mg PO ONCE PRN 10/31/17 [History] Tiotropium [Spiriva] 18 mcg IH DAILY 10/31/17 [History] hydrOXYzine HCl [Hydroxyzine HCl] 25 mg PO TID PRN 10/31/17 [History] Amoxicillin/Clavulanate [Augmentin] 875 mg PO BIDWM #6 tablet 11/05/17 [Rx] Budesonide/Formoterol 160/4.5 [Symbicort 160/4.5] 2 puff IH BIDR inhaler [Rx] Lisinopril [Zestril] 10 mg PO DAILY tablet 11/05/17 [Rx] Rivaroxaban [Xarelto] 15 mg PO Q12H tablet 11/05/17 [Rx] Allergies/Adverse Reactions: 3 Allergy/AdvReac Type Severity Reaction Status Date / Time No Known Drug Allergies Allergy None Verified 11/01/17 08:15 Date of admission: 10/31/17 05:38 [facility] care physician: [facility] Consults: 10/31/17 06:03 Consult to Pulmonology [CONS] Routine Consulting Provider: [facility] Reason for Consult: ICU management Call Completed: No 10/31/17 06:08 Consult to Nutrition [CONS] Routine Comment: Consulting Provider: NUTRITION Reason for Dietary Consult: Tube Feed Start & Manage 11/03/17 12:04 Consult to Dry Box Operator [CONS] Routine Reason for SW Consult: [facility] patient. eval for outpatient anticoagulation due to current dvt 11/04/17 10:39 Consult to Physical Therapy [CONS] Routine Comment: Evaluate, develop and implement POC Reason for Consult: very weak Does patient have active BEDREST order?: No Is patient medically & hemodynamically stable?: Yes Patient assessed for mobility or mobilized this visit?: Yes Discharging clinician: Isabel Ybarra Anticipated date of discharge: 11/05/17 - Constitutional Vitals: Temp Pulse Resp BP Pulse Ox 97.6 F 81 20 170/112 93 11/05/17 12:00 11/05/17 12:00 11/05/17 12:00 11/05/17 12:00 11/05/17 08:09 General appearance: Present: A&O X 0, A&O X 3, severe distress, answers questions appropriately - Cardiovascular Cardiovascular exam: Present: RRR, +S1, +S2. Absent: diastolic murmur, gallop, rubs, systolic murmur - Patient Status Disposition: Transfer [facility] Condition: Good Functional capacity at discharge: independent ambulation Overall status at discharge: patient is progressing back to baseline - Discharge Instructions Follow Up With: [facility] [Primary Care Provider] - Additional Instructions: F/up with PCP in 1-2 weeks - Diet and Activity Activity: as per physical therapy Diet: diabetic diet, low fat, low cholesterol, low salt diet
--- NOTE | 2017-11-06 09:10 | Electrocardiograph Report ---
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
== END 2017-11-05 15:50 | DRG 208 ==
LOC: ICNU 05:38
PROVIDERS: ADMIT Internal Medicine; ATTEND Internal Medicine